=== PATIENT | female | born 1935 | race Caucasian/White ===

== ENCOUNTER 2017-11-14 18:05 | Emergency (ER) | payer OTHER, BC ==
[2017-11-14 18:25] VITALS: TEMP 98.1
--- NOTE | 2017-11-14 19:27 | EDPHY ---
H & P Stated Complaint: fatigue, chest tightness Time Seen by Provider: 11/14/17 19:26 HPI/ROS: CHIEF COMPLAINT: Fatigue, chest tightness HISTORY OF PRESENT ILLNESS: The patient has a history of atrial fibrillation and presents to the ED with complaints of fatigue and chest tightness intermittently for the past 3 days. The patient denies history of coronary artery disease. She had a 40% with blockage noted on angiogram within the past year. The patient [place]. The patient does have an implantable pacemaker. The patient was having tachycardia earlier today. She denies any asymmetric calf pain or swelling. She is currently anticoagulated with Xarelto. REVIEW OF SYSTEMS: A comprehensive 10 point review of systems is otherwise negative aside from elements mentioned in the history of present illness. Source: Patient Exam Limitations: No limitations - Personal History Current Tetanus/Diphtheria Vaccine: Yes Current Tetanus Diphtheria and Acellular Pertussis (TDAP): Yes - Medical/Surgical History Hx Asthma: No Hx Chronic Respiratory Disease: No Hx Diabetes: No Hx Cardiac Disease: Yes Hx Renal Disease: No Hx Cirrhosis: No Hx Alcoholism: No Hx HIV/AIDS: No Hx Splenectomy or Spleen Trauma: No Other PMH: afib, PPM, hyperlipidemia, HTN, tonsilectomy, JB knee replacement, - Social History Smoking Status: Never smoked - Physical Exam Exam: General Appearance: Alert, no distress Eyes: Pupils equal and round no pallor or injection ENT, Mouth: Mucous membranes moist Respiratory: There are no retractions, lungs are clear to auscultation Cardiovascular: Irregular rate, no murmurs rubs or gallops Gastrointestinal: Abdomen is soft and nontender, no masses, bowel sounds normal Neurological: A&O, normal motor function, normal sensory exam, normal cranial nerves Skin: Warm and dry, no rashes Musculoskeletal: Neck is supple nontender Extremities: symmetrical, full range of motion, no asymmetric calf swelling, no peripheral edema Constitutional: Initial Vital Signs Temperature (C) 36.7 C 11/14/17 18:21 Heart Rate 69 11/14/17 18:21 Respiratory Rate 16 11/14/17 18:21 Blood Pressure 183/116 H 11/14/17 18:21 O2 Sat (%) 95 11/14/17 18:21 O2 Delivery Mode Room Air Allergies/Adverse Reactions: No Known Allergies Allergy (Unverified 02/26/18 18:19) Home Medications: Medication Instructions Recorded Aspirin 11/14/17 Calcium 11/14/17 Co Q-10 11/14/17 FLUoxetine 11/14/17 Flexeril 10 MG (*) 11/14/17 Irbesartan 11/14/17 Lovastatin 11/14/17 Metoprolol Tartrate 11/14/17 [place] 3 500 Softgel 11/14/17 Vitamin D3 11/14/17 Xarelto 11/14/17 traMADol 11/14/17 Medical Decision Making - Diagnostics EKG Interpretation: EKG: Complete interpretation has been separately recorded in the [facility] archive. Summary impression: Atrial fibrillation, rate controlled in the 70s, nonspecific ST T wave changes noted. No ST segment elevation. Imaging Results: Imaging Impressions Chest X-Ray 11/14/17 19:43 Impression: Underlying COPD, without acute abnormality.. ED Course/Re-evaluation: The patient presents to the ED for evaluation of mild dyspnea and slight chest heaviness while at altitude. The patient the patient has a history of atrial fibrillation which is chronic. She is anticoagulated. She has no history of significant coronary artery disease. The patient currently is asymptomatic. She is observed to have some nonspecific ST T wave changes on her EKG with no prior EKG to compare to. She was slightly hypertensive in the emergency department. The patient does have an elevated proBNP which I feel is likely the result of her atrial fibrillation and COPD. She has no clinical evidence of heart failure. While in the emergency department the patient remained asymptomatic. I discussed with her options. She does understand that we cannot fully exclude progressive coronary artery disease and she was offered admission to the hospital. The patient would like to be discharged home. She plans to travel back to [place] and will review her current medication management with her mushroom picker then. I have told her that she can take an extra dose of her NURYS- inhibitor as this medication had recently been decreased by her mushroom picker. The patient will be discharged from the emergency department with customary aftercare instructions and return precautions. Differential Diagnosis: Differential diagnosis considered includes hypertensive emergency, congestive heart failure, myocardial infarction, arrhythmia, dehydration, metabolic abnormality - Data Points Laboratory Results: Laboratory Results 11/14/17 19:53 11/14/17 19:53 11/14/17 11/14/17 19:53 19:53 WBC 5.91 10^3/uL 10^3/uL (3.80-9.50) RBC 4.59 10^6/uL 10^6/uL (4.18-5.33) Hgb 12.6 g/dL g/dL (12.6-16.3) Hct 38.6 % % (38.0-47.0) MCV 84.1 fL fL (81.5-99.8) MCH 27.5 pg L pg (27.9-34.1) MCHC 32.6 g/dL g/dL (32.4-36.7) RDW 13.6 % % (11.5-15.2) Plt Count 208 10^3/uL 10^3/uL (150-400) MPV 10.0 fL fL (8.7-11.7) Neut % (Auto) 58.6 % % (39.3-74.2) Lymph % (Auto) 23.9 % % (15.0-45.0) Bonner % (Auto) 11.2 % % (4.5-13.0) Eos % (Auto) 5.2 % % (0.6-7.6) Baso % (Auto) 0.8 % % (0.3-1.7) Nucleat RBC Rel Count 0.0 % % (0.0-0.2) Absolute Neuts (auto) 3.46 10^3/uL 10^3/uL (1.70-6.50) Absolute Lymphs (auto) 1.41 10^3/uL 10^3/uL (1.00-3.00) Absolute Monos (auto) 0.66 10^3/uL 10^3/uL (0.30-0.80) Absolute Eos (auto) 0.31 10^3/uL 10^3/uL (0.03-0.40) Absolute Basos (auto) 0.05 10^3/uL 10^3/uL (0.02-0.10) Absolute Nucleated RBC 0.00 10^3/uL 10^3/uL (0-0.01) Immature Gran % 0.3 % % (0.0-1.1) Immature Gran # 0.02 10^3/uL 10^3/uL (0.00-0.10) Sodium 137 mEq/L mEq/L (135-145) Potassium 3.3 mEq/L L mEq/L (3.5-5.2) Chloride 101 mEq/L mEq/L (97-110) Carbon Dioxide 27 mEq/l mEq/l (22-31) Anion Gap 9 mEq/L mEq/L (8-16) BUN 19 mg/dL mg/dL (7-23) Creatinine 0.8 mg/dL mg/dL (0.6-1.0) Estimated GFR > 60 Glucose 113 mg/dL H mg/dL (70-100) Calcium 9.4 mg/dL mg/dL (8.5-10.4) Troponin I < 0.012 ng/mL ng/mL (0.000-0.034) NT-Pro-B Natriuret Pep 2950 pg/mL H pg/mL (0-450) Departure - Departure Disposition: Home, Routine, Self-Care Clinical Impression: Dyspnea Condition: Good Instructions: Dyspnea (ED) Additional Instructions: 1. I would recommend taking an extra dose of your blood pressure medication this evening. 2. Return to the ED for markedly worsening symptoms or other concerns. 3. Please consult with your mushroom picker for recommendations regarding your slightly elevated blood pressure. 4. The testing done in the emergency department today demonstrates no evidence of an obvious heart attack. We are unable to fully exclude progressive coronary artery disease based upon the testing we have done in the ED ED today. Please contact your regular mushroom picker tomorrow to schedule a follow-up visit. Referrals: CHERI RIOS [Other] - As per Instructions
--- NOTE | 2017-11-14 19:34 | CPEKG ---
Heart Rate: 63 RR Interval: 952 QRSD Interval: 100 QT Interval: 452 QTC Interval: 463 QRS [place]: 91 T Wave [place]: -69 EKG Severity - ABNORMAL ECG - EKG Impression: ATRIAL FIBRILLATION, V-RATE 53-76 EKG Impression: NONSPECIFIC T ABNORMALITIES, INFERIOR LEADS Electronically Signed By: John Mccall 14-Nov-2017 20:02:15
[2017-11-14 20:07] LABS: PLATELET COUNT 208 10^3/uL (150-400)
[2017-11-14 22:07] VITALS: BP 158/94; PULSE 63; RESP 20; O2SAT 94
== END 2017-11-14 22:24 | disposition home or self-care (01) ==
DX: R06.00 Dyspnea, unspecified (principal); I10 Essential (primary) hypertension; Z79.82 Long term (current) use of aspirin